=== PATIENT | male | born 1990 | race American Indian/Alaskan Native ===

== ENCOUNTER 2016-10-16 04:54 | Emergency (ER) | payer SELFPAY ==
[2016-10-16] MEDS ORDERED: ZOFRAN ODT PO ONE (05:29)
--- NOTE | 2016-10-16 05:36 | Emergency Department Report ---
ED Medical Clearance HPI - General Chief complaint: Medical Clearance Stated complaint: FAHAD Time Seen by Provider: 10/16/16 05:25 Source: patient Mode of arrival: Stretcher - History of Present Illness Initial comments: Patient is a 26-year-old male no significant past history who presents with "feeling weird" after eating a marijuana brownie patient has no pain anywhere. However he states that he feels nauseous but he cannot vomit. He will states that sewing gave him a marijuana brownie yesterday night at 11 PM. Patient denies being knee pain however he states that he feels very weird. He's never had marijuana before. He states that he started having symptoms of this around noon. Allergies/Adverse reactions: Allergies Allergy/AdvReac Type Severity Reaction Status Date / Time No Known Allergies Allergy Unverified 10/16/16 05:06 ED Review of Systems ROS: Stated complaint: FAHAD Other details as noted in HPI Constitutional: denies: chills, fever Eyes: denies: eye pain, eye discharge, vision change ENT: denies: ear pain, throat pain Respiratory: denies: cough, shortness of breath, wheezing Cardiovascular: denies: chest pain, palpitations Endocrine: no symptoms reported Gastrointestinal: nausea. denies: abdominal pain, diarrhea Genitourinary: denies: urgency, dysuria Musculoskeletal: denies: back pain, joint swelling, arthralgia Skin: denies: rash, lesions Neurological: denies: headache, weakness, paresthesias Psychiatric: denies: anxiety, depression Hematological/Lymphatic: denies: easy bleeding, easy bruising ED Past Medical Hx - Past Medical History Previous Medical History?: No - Social History Smoking Status: Never Smoker Substance Use Type: Marijuana ED Physical Exam - General Limitations: No Limitations General appearance: alert, in no apparent distress - Head Head exam: Present: atraumatic, normocephalic - Eye Eye exam: Present: normal appearance - ENT ENT exam: Present: mucous membranes moist - Neck Neck exam: Present: normal inspection - Respiratory Respiratory exam: Present: normal lung sounds bilaterally. Absent: respiratory distress - Cardiovascular Cardiovascular Exam: Present: regular rate, normal rhythm. Absent: systolic murmur, diastolic murmur, rubs, gallop - GI/Abdominal GI/Abdominal exam: Present: soft, normal bowel sounds - Rectal Rectal exam: Present: deferred - Extremities Exam Extremities exam: Present: normal inspection - Back Exam Back exam: Present: normal inspection - Neurological Exam Neurological exam: Present: alert, oriented X3 - Psychiatric Psychiatric exam: Present: normal affect, normal mood - Skin Skin exam: Present: warm, dry, intact, normal color. Absent: rash ED Course Vital Signs 10/16/16 10/16/16 10/16/16 05:08 05:23 05:26 Temperature 98.4 F Pulse Rate 78 76 Respiratory 20 16 16 Rate Blood Pressure 144/93 Blood Pressure 134/88 [Left] O2 Sat by Pulse 99 100 100 Oximetry ED Medical Decision Making - Medical Decision Making Chief medical diagnosis: Marijuana intoxication differential Differential diagnosis: Alcohol intoxication, narcotic intoxication I'll give patient oral Zofran and I will then discharge patient. Patient is alert and oriented he is able to ambulate without any difficulty and is able to tolerate by mouth. He can give me a coherent story and it has been 6 hours since ingestion. Due to a subclinical policy on marijuana use there is little utility in doing blood work or urinalysis as it well. Will show me how intoxicated this patient has. This was a patient that he can go home and to take fluids. Patient denies any alcohol or any other drug use patient can clearly state whether or not he took any drugs so it is unlikely that he would be non-telemetry of about not taking any alcohol or narcotic abuse. Patient's pupils are not pinpoint he has no respiratory depression. Sounds are within the normal limits. Also patient home with follow-up patient agrees with plan. Additional verbal discharge instructions were given. ED Disposition Clinical Impression: Marijuana abuse, Nausea Marijuana intoxication Qualifiers: Complication of substance-induced condition: uncomplicated Qualified Code(s): F12.920 - Cannabis use, unspecified with intoxication, uncomplicated Disposition: DC-01 TO HOME OR SELFCARE Is pt being admited?: No Does the pt Need Aspirin: No Condition: Stable Instructions: Medicinal Use of Cannabis (ED) Time of Disposition: 05:30
[2016-10-16 05:51] VITALS: BP 134/88
== END 2016-10-16 05:35 | disposition home or self-care (01) ==
LOC: ED 04:54
DX: F12.920 Cannabis use, unspecified with intoxication, uncomplicated (principal)
CPT/HCPCS: Q0162